=== PATIENT | female | born 1935 | race Caucasian/White ===

== ENCOUNTER 2016-10-27 15:49 | Emergency (ER) | payer MEDICARE, BC ==
[2016-10-27 16:03] VITALS: RESP 18
--- NOTE | 2016-10-27 16:31 | ED ---
General Adult HPI - General Chief complaint: Extremity Injury, Upper Stated complaint: rt shoulder pain Time Seen by Provider: 10/27/16 15:53 Source: patient, EMS, RN notes reviewed Mode of arrival: EMS Limitations: no limitations - History of Present Illness Initial comments: 81-year-old female presents emergency Department chief complaint of right shoulder pain. Patient has been complaining of right shoulder pain for the last week or so. The daughter after discussing the case with the snf follow-up with a specialist she just continued to complain the pains without that they should be seen. The patient denies any falls traumas or injuries. We did contact the snf was consistent with the story. Patient has pain with movement or touch to the shoulder.Patient denies any recent fever, chills, shortness of breath, chest pain, back pain, abdominal pain, nausea vomiting, numbness or tingling, dysuria or hematuria, constipation or diarrhea, headaches or visual changes, or any other current symptoms. - Related Data Home Medications Medication Instructions Recorded Confirmed Acetaminophen Tab [Tylenol Tab] 650 mg PO Q6H PRN 10/27/16 10/27/16 Artificial Tears-Hypromellose 1 drops BOTH EYES TID PRN 10/27/16 10/27/16 [Artificial Tear Drops] Aspirin EC [Ecotrin Low Dose] 81 mg PO DAILY@0930 10/27/16 10/27/16 Atorvastatin [Lipitor] 10 mg PO HS 10/27/16 10/27/16 Carvedilol [Coreg] 12.5 mg PO BID 10/27/16 10/27/16 Levothyroxine Sodium [Synthroid] 100 mcg PO DAILY 10/27/16 10/27/16 Lisinopril [Zestril] 20 mg PO DAILY 10/27/16 10/27/16 Mirtazapine 30 mg PO HS 10/27/16 10/27/16 Oyster Shell Manpreet+D 500/200mg 1 tab PO BID 10/27/16 10/27/16 Ranitidine HCl [Zantac] 150 mg PO BID 10/27/16 10/27/16 Sucralfate [Carafate] 1 gm PO BID 10/27/16 10/27/16 Allergies Allergy/AdvReac Type Severity Reaction Status Date / Time acetaminophen [From Vicodin] Allergy Unknown Verified 10/27/16 16:24 codeine Allergy Unknown Verified 10/27/16 16:24 hydrocodone [From Vicodin] Allergy Unknown Verified 10/27/16 16:24 hydromorphone [From Dilaudid] Allergy Unknown Verified 10/27/16 16:24 morphine Allergy Unknown Verified 10/27/16 16:24 Penicillins Allergy Unknown Verified 10/27/16 16:24 Sulfa (Sulfonamide Allergy Unknown Verified 10/27/16 16:24 Antibiotics) Review of Systems ROS Statement: Those systems with pertinent positive or pertinent negative responses have been documented in the HPI. ROS Other: All systems not noted in ROS Statement are negative. Past Medical History Past Medical History: Unable to Obtain Additional Past Medical History / Comment(s): patient poor historian History of Any Multi-Drug Resistant Organisms: None Reported Past Surgical History: Adenoidectomy, Hysterectomy, Joint Replacement, Tonsillectomy Past Psychological History: No Psychological Hx Reported Smoking Status: Never smoker Past Alcohol Use History: None Reported Past Drug Use History: None Reported General Exam - General Exam Comments Initial Comments: General: The patient is awake and alert, in no distress, and does not appear acutely ill. Neck: The neck is supple, there is no tenderness. Cardiovascular: There is a regular rate and rhythm. No murmur, rub or gallop is appreciated. Respiratory: Lungs are clear to auscultation, respirations are non-labored, breath sounds are equal. No wheezes, stridor, rales, or rhonchi. Musculoskeletal: Sensation intact with 2+ pulses. full Range of motion of the right shoulder. Patient has tenderness with patient of the anterior right shoulder. Full range motion the elbow. Patient is able to touch the opposite over the right hand Neurological: CN II-XII intact, There are no obvious motor or sensory deficits. Coordination appears grossly intact. Speech is normal. Skin: Skin is warm and dry and no rashes or lesions are noted. Psychiatric: Normal mood and affect. Limitations: no limitations Course Vital Signs 10/27/16 15:59 Temperature 98.1 F Pulse Rate 66 Respiratory 18 Rate Blood Pressure 133/60 O2 Sat by Pulse 96 Oximetry Procedures - Orthopedic Splinting/Casting Injury #1 Side: right Upper Extremity Injury Location: shoulder Upper Extremity Immobilizer: sling/shoulder immobilizer Medical Decision Making - Medical Decision Making 81-year-old female presents for right shoulder pain. This time x-rays been reviewed. We discussed care follow-up return parameters discussed continued follow-up with the specialist on Monday. We discussed all the patient's and family's questions. They state Roque management plan. They'll be discharged. Disposition Clinical Impression: Right shoulder pain Disposition: HOME SELF-CARE Condition: Stable Instructions: Shoulder Pain (ED) Additional Instructions: Please use medication as discussed. Please follow up with family doctor if symptoms have not improved over the next two days. Please return to the emergency room if your symptoms increase or worsen or for any other concerns. Referrals: Jefferson Spaluding MD [Medical Doctor] - 1-2 days Time of Disposition: 17:50
--- NOTE | 2016-10-27 16:42 | XR ---
EXAMINATION TYPE: XR shoulder complete RT DATE OF EXAM: 10/27/2016 COMPARISON: NONE HISTORY: 81-year-old female with right shoulder pain TECHNIQUE: 3 views FINDINGS: AC joint appears intact with mild degenerative spurring. There is mild degenerative spurring at the g lenohumeral joint. Extensive bony irregularity along the superior articular margin of the humeral hea d and also at the greater tuberosity with areas of undercutting and possible erosion. There appears t o be significant joint space narrowing at the glenoid humeral joint and anterior positioning of the h umeral head in relation to the glenoid. Possible 6 mm loose body in the subcoracoid recess. No acute fracture seen. IMPRESSION: 1. Extensive bony irregularity and possible shallow erosions along the superior articular surface of the humeral head and at the greater tuberosity. Clinical correlation recommended for possible inflamm atory arthropathy such as RA or infectious arthropathy. 2. There appears to be significant joint space narrowing at the glenohumeral joint with prominent ant erior subluxation. This may reflect instability relating to rotator cuff tear. Recommend an axillary view to exclude anterior dislocation.
--- NOTE | 2016-10-27 17:10 | XR ---
EXAMINATION TYPE: XR shoulder limited RT DATE OF EXAM: 10/27/2016 COMPARISON: NONE HISTORY: 81 year-old female right shoulder pain TECHNIQUE: Single axillary view FINDINGS: Images show anterior subluxation of the glenoid humeral joint with the humeral head articulating with only the anterior half of the glenoid. The anterior glenoid appears deformed and depressed with bone -on-bone articulation. 6 mm loose body in the subcoracoid recess. IMPRESSION: This confirms anterior subluxation with the humeral head articulating with only the anterior half of the glenoid. This anterior glenoid appears deformed and impacted with [id number] articulation. Yovanny elate for any past history of a traumatic shoulder dislocation and a secondary bony Bankart injury. G iven the degree of glenohumeral joint instability, the rotator cuff may be torn.
[2016-10-27] MEDS ORDERED: IBUPROFEN 600 MG TAB PO STA (18:09)
[2016-10-27 18:23] VITALS: BP 160/70; PULSE 65; TEMP 98
== END 2016-10-27 18:22 | disposition home or self-care (01) ==
LOC: EC 15:49
DX: M25.511 Pain in right shoulder (principal); Z88.5 Allergy status to narcotic agent; Z96.60 Presence of unspecified orthopedic joint implant; Z88.0 Allergy status to penicillin; Z88.2 Allergy status to sulfonamides; Z79.01 Long term (current) use of anticoagulants; Z79.82 Long term (current) use of aspirin; Z79.899 Other long term (current) drug therapy
CPT/HCPCS: 99283

== ENCOUNTER 2018-09-10 14:08 | Inpatient (IN) | payer MEDICARE, BC ==
[2018-09-10] MEDS ORDERED: SODIUM CHLORIDE 0.9% 1,000 ML IV STA (14:27)
[2018-09-10] MEDS ORDERED: PANTOPRAZOLE 40 MG/10 ML VIAL IVP STA (14:27)
--- NOTE | 2018-09-10 14:29 | ED ---
General Adult HPI - General Chief complaint: GI Bleed Stated complaint: Rectal Bleeding Time Seen by Provider: 09/10/18 14:14 Source: patient, EMS, RN notes reviewed Mode of arrival: ambulatory Limitations: no limitations - History of Present Illness Initial comments: Patient is a pleasant 83-year-old female presenting to the emergency Department with complaints of lower GI hemorrhage. Onset of symptoms was possibly last night, small amount. Patient states today after eating she had a large bowel movement with blood. Patient denies any abdominal discomfort. No fatigue or weakness. No dyspnea. No history of similar symptoms previously. No nausea or vomiting - Related Data Home Medications Medication Instructions Recorded Confirmed Acetaminophen Tab [Tylenol Tab] 650 mg PO Q6H PRN 10/27/16 09/10/18 Artificial Tears-Hypromellose 1 drops BOTH EYES TID 10/27/16 09/10/18 [Artificial Tear Drops] Aspirin EC [Ecotrin Low Dose] 81 mg PO DAILY@99910/27/16 09/10/18 Atorvastatin [Lipitor] 10 mg PO HS@209910/27/16 09/10/18 Carvedilol [Coreg] 12.5 mg PO BID@999,209910/27/16 09/10/18 Levothyroxine Sodium [Synthroid] 100 mcg PO DAILY@99910/27/16 09/10/18 Lisinopril [Zestril] 20 mg PO DAILY@99910/27/16 09/10/18 Mirtazapine 30 mg PO HS@209910/27/16 09/10/18 Oyster Shell Manpreet+D 500/200mg 1 tab PO BID@1000,16310/27/16 09/10/18 Ranitidine HCl [Zantac] 150 mg PO BID@1000,16310/27/16 09/10/18 Sucralfate [Carafate] 1 gm PO BID@999,162910/27/16 09/10/18 ALPRAZolam [Xanax] 0.25 mg PO DAILY@99909/10/18 09/10/18 Betamethasone Dipropionate 1 applic TOPICAL DAILY@99909/10/18 09/10/18 [Diprolene AF 0.05% Cream] Bumetanide [Bumex] 1 mg PO BID@999,209909/10/18 09/10/18 Naproxen 500 mg PO BID@1000,1630 09/10/18 09/10/18 Polyethylene Glycol 3350 [Miralax] 17 gm PO DAILY PRN 09/10/18 09/10/18 Sennosides/Docusate Sodium 3 tab PO HS PRN 09/10/18 09/10/18 [Senna-S Laxative Tablet] traMADol HCl [Ultram] 50 mg PO BID PRN 09/10/18 09/10/18 Allergies Allergy/AdvReac Type Severity Reaction Status Date / Time acetaminophen [From Vicodin] Allergy Unknown Verified 09/10/18 14:21 codeine Allergy Unknown Verified 09/10/18 14:21 hydrocodone [From Vicodin] Allergy Unknown Verified 09/10/18 14:21 hydromorphone [From Dilaudid] Allergy Unknown Verified 09/10/18 14:21 morphine Allergy Unknown Verified 09/10/18 14:21 Penicillins Allergy Unknown Verified 09/10/18 14:21 Sulfa (Sulfonamide Allergy Unknown Verified 09/10/18 14:21 Antibiotics) Review of Systems ROS Statement: Those systems with pertinent positive or pertinent negative responses have been documented in the HPI. ROS Other: All systems not noted in ROS Statement are negative. Constitutional: Denies: fever Eyes: Denies: eye pain ENT: Denies: ear pain Respiratory: Denies: cough Cardiovascular: Denies: chest pain Endocrine: Denies: fatigue Gastrointestinal: Reports: hematochezia. Denies: abdominal pain, nausea, vomiting Genitourinary: Denies: dysuria Musculoskeletal: Denies: back pain Skin: Denies: rash Neurological: Denies: weakness Past Medical History Past Medical History: Unable to Obtain Additional Past Medical History / Comment(s): patient poor historian History of Any Multi-Drug Resistant Organisms: None Reported Past Surgical History: Adenoidectomy, Hysterectomy, Joint Replacement, Tonsillectomy Past Psychological History: No Psychological Hx Reported Smoking Status: Never smoker Past Alcohol Use History: None Reported Past Drug Use History: None Reported General Exam Limitations: no limitations General appearance: alert, in no apparent distress Head exam: Present: atraumatic Eye exam: Present: normal appearance, PERRL ENT exam: Present: normal oropharynx Neck exam: Present: normal inspection Respiratory exam: Present: normal lung sounds bilaterally Cardiovascular Exam: Present: regular rate, normal rhythm GI/Abdominal exam: Present: soft, normal bowel sounds. Absent: distended, tenderness, guarding, rebound, rigid, pulsatile mass Rectal exam: Present: normal inspection, bloody stool Extremities exam: Present: normal inspection Neurological exam: Present: alert Psychiatric exam: Present: normal affect, normal mood Skin exam: Present: normal color Course Vital Signs 09/10/18 14:13 Temperature 98.0 F Pulse Rate 64 Respiratory 18 Rate Blood Pressure 141/54 O2 Sat by Pulse 100 Oximetry Medical Decision Making - Medical Decision Making Patient reevaluated and updated. Patient resting comfortably in bed. Case was discussed with Dr. Meredith, who will admit covering for hospital call. - Lab Data Result diagrams: 09/10/18 14:37 09/10/18 14:37 Lab Results 09/10/18 09/10/18 09/10/18 Range/Units 14:37 14:37 14:37 WBC 5.6 (3.8-10.6) k/uL RBC 3.12 L (3.80-5.40) m/uL Hgb 9.8 L (11.4-16.0) gm/dL Hct 29.3 L (34.0-46.0) % MCV 94.0 (80.0-100.0) fL MCH 31.4 (25.0-35.0) pg MCHC 33.4 (31.0-37.0) g/dL RDW 14.2 (11.5-15.5) % Plt Count 178 (150-450) k/uL Neutrophils % 63 % Lymphocytes % 19 % Monocytes % 6 % Eosinophils % 7 % Basophils % 1 % Neutrophils # 3.5 (1.3-7.7) k/uL Lymphocytes # 1.1 (1.0-4.8) k/uL Monocytes # 0.4 (0-1.0) k/uL Eosinophils # 0.4 (0-0.7) k/uL Basophils # 0.1 (0-0.2) k/uL PT (9.0-12.0) sec INR (<1.2) APTT (22.0-30.0) sec Sodium 138 (137-145) mmol/L Potassium 4.9 (3.5-5.1) mmol/L Chloride 98 (98-107) mmol/L Carbon Dioxide 32 H (22-30) mmol/L Anion Gap 8 mmol/L BUN 56 H (7-17) mg/dL Creatinine 2.11 H (0.52-1.04) mg/dL Est GFR (CKD-EPI)AfAm 24 (>60 ml/min/1.73 sqM) Est GFR (CKD-EPI)NonAf 21 (>60 ml/min/1.73 sqM) Glucose 107 H (74-99) mg/dL Calcium 9.6 (8.4-10.2) mg/dL Total Bilirubin 0.6 (0.2-1.3) mg/dL AST 19 (14-36) U/L ALT 13 (9-52) U/L Alkaline Phosphatase 68 (38-126) U/L Total Protein 6.3 (6.3-8.2) g/dL Albumin 3.5 (3.5-5.0) g/dL Stool Occult Blood Positive H (Negative) 09/10/18 Range/Units 14:37 WBC (3.8-10.6) k/uL RBC (3.80-5.40) m/uL Hgb (11.4-16.0) gm/dL Hct (34.0-46.0) % MCV (80.0-100.0) fL MCH (25.0-35.0) pg MCHC (31.0-37.0) g/dL RDW (11.5-15.5) % Plt Count (150-450) k/uL Neutrophils % % Lymphocytes % % Monocytes % % Eosinophils % % Basophils % % Neutrophils # (1.3-7.7) k/uL Lymphocytes # (1.0-4.8) k/uL Monocytes # (0-1.0) k/uL Eosinophils # (0-0.7) k/uL Basophils # (0-0.2) k/uL PT 10.3 (9.0-12.0) sec INR 1.0 (<1.2) APTT 28.7 (22.0-30.0) sec Sodium (137-145) mmol/L Potassium (3.5-5.1) mmol/L Chloride (98-107) mmol/L Carbon Dioxide (22-30) mmol/L Anion Gap mmol/L BUN (7-17) mg/dL Creatinine (0.52-1.04) mg/dL Est GFR (CKD-EPI)AfAm (>60 ml/min/1.73 sqM) Est GFR (CKD-EPI)NonAf (>60 ml/min/1.73 sqM) Glucose (74-99) mg/dL Calcium (8.4-10.2) mg/dL Total Bilirubin (0.2-1.3) mg/dL AST (14-36) U/L ALT (9-52) U/L Alkaline Phosphatase (38-126) U/L Total Protein (6.3-8.2) g/dL Albumin (3.5-5.0) g/dL Stool Occult Blood (Negative) Disposition Clinical Impression: Lower gastrointestinal hemorrhage Disposition: ADMITTED IP TO THIS HOSP Is patient prescribed a controlled substance at d/c from ED?: No Referrals: Josue Hager MD [Primary Care Provider] - 1-2 days Decision Time: 15:46
[2018-09-10 14:48] LABS: Basophils # (A) 0.1 k/uL (0-0.2); Basophils % (A) 1 %; Eosinophils # (A) 0.4 k/uL (0-0.7); Eosinophils % (A) 7 %; HCT 29.3 % (34.0-46.0); HGB 9.8 gm/dL (11.4-16.0); Lymphocytes # (A) 1.1 k/uL (1.0-4.8); Lymphocytes % (A) 19 %; MCH 31.4 pg (25.0-35.0); MCHC 33.4 g/dL (31.0-37.0); Mean Platelet Volume 8.5; Monocytes # (A) 0.4 k/uL (0-1.0); Monocytes % (A) 6 %; Neutrophils # (A) 3.5 k/uL (1.3-7.7); Neutrophils % (A) 63 %; Platelet Count 178 k/uL (150-450); RBC 3.12 m/uL (3.80-5.40); RDW 14.2 % (11.5-15.5); WBC 5.6 k/uL (3.8-10.6)
[2018-09-10 14:55] LABS: Albumin 3.5 g/dL (3.5-5.0); Calcium 9.6 mg/dL (8.4-10.2); Potassium 4.9 mmol/L (3.5-5.1); Total Bilirubin 0.6 mg/dL (0.2-1.3); Total Protein 6.3 g/dL (6.3-8.2)
[2018-09-10 14:57] LABS: Prothrombin Time 10.3 sec (9.0-12.0)
[2018-09-10 14:58] LABS: Partial Thromboplastin Time 28.7 sec (22.0-30.0)
[2018-09-10] MEDS ORDERED: NALOXONE 0.4 MG/ML 1 ML VIAL IV PRN (15:47)
[2018-09-10 17:24] LABS: Glucose,Whole Blood 117 mg/dL (75-99)
[2018-09-10 17:30] VITALS: BMI 28.3
[2018-09-10 17:38] LABS: Appearance,Urine Clear (Clear); Bilirubin,Urine Negative (Negative); Blood,Urine Negative (Negative); Color,Urine Light Yellow; Glucose,Urine (UA) Negative (Negative); Ketones,Urine Negative (Negative); Leukocyte Esterase,Urine Negative (Negative); Nitrite,Urine Negative (Negative); PH, Urine 7.5 (5.0-8.0); Protein,Urine Negative (Negative); Specific Gravity,Urine 1.007 (1.001-1.035); Urobilinogen,Urine <2.0 mg/dL (<2.0)
[2018-09-10] MEDS: PANTOPRAZOLE 40 MG/10 ML VIAL IV SCH (21:03)
[2018-09-10 21:43] LABS: HCT 26.9 % (34.0-46.0); HGB 8.9 gm/dL (11.4-16.0); MCH 30.6 pg (25.0-35.0); MCV 92.8 fL (80.0-100.0); Mean Platelet Volume 7.2; Platelet Count 162 k/uL (150-450); RDW 13.2 % (11.5-15.5)
[2018-09-10 22:14] LABS: Eosinophils # (M) 0.25 k/uL (0-0.7); Hypochromasia (M) Present; Monocytes # (M) 0.65 k/uL (0-1.0); Neutrophils % (M) 44 %; Nucleated Red Blood Cells 0 /100 WBC (0-0); Total Cells Counted 100
[2018-09-10 22:15] LABS: Anisocytosis (M) Present
[2018-09-11] MEDS: SODIUM CHLORIDE 0.9% 1,000 ML IV SCH ×3 (02:00→20:03)
[2018-09-11 05:17] LABS: Basophils % (A) 1 %; Eosinophils # (A) 0.2 k/uL (0-0.7); Eosinophils % (A) 4 %; HCT 24.6 % (34.0-46.0); HGB 8.1 gm/dL (11.4-16.0); Lymphocytes # (A) 1.5 k/uL (1.0-4.8); Lymphocytes % (A) 28 %; MCH 31.3 pg (25.0-35.0); MCHC 33.1 g/dL (31.0-37.0); MCV 94.7 fL (80.0-100.0); Mean Platelet Volume 8.5; Monocytes # (A) 0.5 k/uL (0-1.0); Monocytes % (A) 10 %; Neutrophils # (A) 2.9 k/uL (1.3-7.7); Neutrophils % (A) 54 %; Platelet Count 168 k/uL (150-450); RBC 2.59 m/uL (3.80-5.40); RDW 13.7 % (11.5-15.5); WBC 5.3 k/uL (3.8-10.6)
[2018-09-11 05:43] LABS: Calcium 8.7 mg/dL (8.4-10.2); Potassium 4.1 mmol/L (3.5-5.1)
--- NOTE | 2018-09-11 10:30 | PN ---
PROGRESS NOTE PULMONARY/CRITICAL CARE CONSULTATION: DATE OF SERVICE: 09/11/2018 This is an 83-year-old female, very poor historian who comes to the emergency room complaining of lower GI hemorrhage. She apparently had some bright red bleeding per rectum. Apparently, the symptoms started the night before admission. She apparently had a rather large bowel movement after eating, but noted to be bloody. She apparently denied any abdominal discomfort, abdominal pain and she still is denying any of that. She denies any fatigue or weakness. She is not short of breath. Very poor historian. She denies any chest pain or chest discomfort. No fever or chills. It does not appear that she has had this problem before. She was admitted to the ICU with a GI bleed. She is not receiving any supplemental oxygen. She is on saline at 100 mL an hour. Her most recent hemoglobin was 8.1, and she has not received any blood thus far. She is resting comfortably. Again, without any complaints although she is somewhat of a poor historian. OUTPATIENT MEDICATIONS INCLUDE: Tylenol, Artificial Tears, aspirin which has been discontinued, Lipitor, Coreg, Synthroid, Zestril, mirtazapine, oyster shell calcium, ranitidine, Carafate, Xanax, Diprolene cream, Bumex, naproxen, which has been discontinued, MiraLAX, senna laxative, and Ultram, which has been discontinued. ALLERGIES: Include TYLENOL, CODEINE, HYDROCODONE, HYDROMORPHONE,MORPHINE, PENICILLIN and SULFA ANTIBIOTICS. MEDICAL HISTORY: Apparently positive for hyperlipidemia, hypertension, hypothyroidism, gastroesophageal reflux disease, anxiety and chronic pain syndrome. PAST SURGICAL HISTORY: Apparently positive for adenoidectomy, hysterectomy, joint replacement, and tonsillectomy. SOCIAL HISTORY: Apparently negative for tobacco use. FAMILY HISTORY: Noncontributory. Apparently, both mother and father were healthy. This is according to a somewhat-confused patient. OCCUPATION HISTORY: Noncontributory. REVIEW OF SYSTEMS: May or may not be reliable. CONSTITUTIONAL: Mild weakness. NEUROLOGIC: Negative. HEENT: Negative. CARDIOVASCULAR: Negative. PULMONARY: Negative. GI: Lower GI bleed. : Negative. RHEUMATOLOGIC: Negative. IMMUNOLOGIC: Negative. ENDOCRINOLOGIC: Negative. DERMATOLOGIC: Negative. PHYSICAL EXAMINATION: Current vital signs are reviewed. Temperature is 97.8, heart rate 65, respiratory rate 20, blood pressure 122/46 mean 71, room air saturation 97%. Appears in no acute distress. Color is good. No conversational dyspnea. HEENT: Examination is grossly unremarkable. No supplemental oxygen noted. NECK: Supple. Full range of motion. No adenopathy, thyromegaly or neck vein distention. CARDIOVASCULAR: Examination reveals regular rhythm rate. Heart rate is 64 and regular. S1, S2 normal. No S3, S4, murmur. LUNGS: Reveal clear breath sounds equal. No wheezes, rhonchi, or crackles. ABDOMEN: Soft, bowel sounds are noted. No pain on palpation. EXTREMITIES: Intact. No cyanosis, clubbing, or edema. SKIN: Without rash. NEUROLOGIC: Examination is difficult to assess. Her mental status is somewhat poor. She is confused. She does move all 4 extremities. LABS: Reviewed. White count 5.3, hemoglobin 8.1, hematocrit 24.6, platelet count was normal. Sodium, potassium, chloride, CO2 all normal. Anion gap normal. BUN and creatinine were 47 and 1.61. Urine is negative. Stool for occult blood was positive. Liver function tests were otherwise normal. No chest x-rays to report. Medications include Narcan, Protonix and a saline IV. ASSESSMENT: 1. Possible lower gastrointestinal bleed and the patient is a very poor historian. 2. Anemia, secondary to gastrointestinal bleed. 3. History of hyperlipidemia. 4. History of hypertension. 5. History of hypothyroidism. 6. History of gastroesophageal reflux disease. PLAN: The patient will be observed here for the better part of the day. The patient appears to be relatively stable now, although the hemoglobin has been dropping with some gentle hydration. Will have Gastroenterology see the patient. The patient is on appropriate medications. No additional recommendations are made. Patient is a very poor historian. MMODL / IJN: [id number] /
[2018-09-11] MEDS: PANTOPRAZOLE 40 MG/10 ML VIAL IV SCH ×2 (10:44→20:02)
[2018-09-11] MEDS ORDERED: ACETAMINOPHEN TAB 325 MG TAB PO PRN (10:58)
--- NOTE | 2018-09-11 12:03 | P.CONS ---
History of Present Illness - Reason for Consult Consult date: 09/11/18 GI bleed Requesting physician: Manpreet Meredith - Chief Complaint rectal bleeding - History of Present Illness 83-year-old female with dementia resident at local [facility] admitted with reports of rectal bleeding for a few days. History obtained from the medical records and nursing staff. According to the midnight ICU nurse there was reports a few black dark colored bowel movements. Minimal abdominal discomfort. No emesis or gross hematemesis. No history of GI bleed. Unsure if patient has had an EGD or colonoscopy. F medications reviewed Carafate twice daily, Zantac twice daily, Naprosyn twice daily, baby aspirin daily. Admission hemoglobin 9.8 she received a liter bolus of fluid in the ER presently 8.1. White count 5.3. Platelet 168. MCV 94. Review of medical records no previous CBC to compare. FOBT positive. INR 1.0. BUN 56. Creatinine 2.1 today BUN 47. Creatinine 1.6. Review of Systems Obtained from medical record secondary to history of dementia Constitutional: Denies fever, chills, sweats, weight gain, or loss. HEENT: Negative for migraines, blurred vision or loss, earaches, drainage, t innitus, oral mucosal lesions, dysphagia, or odynophagia. CARDIAC: Negative for chest pain, arrhythmias, or palpitation. RESPIRATORY: Negative for shortness of breath, hemoptysis, cough, or sputum pro duction. GI: See HPI for pertinent findings. : Negative for hematuria, urgency, frequency, polyuria, or dysuria. GYNc: Negative vaginal discharge. MUSCULOSKELETAL: Negative for muscle aches, swelling, arthritis, and arthralgias. NEUROLOGIC: Negative for stroke or TIA. ENDOCRINE: Negative for thyroid problems. SKIN: Negative for rash or itching. PSYCHIATRIC: Dementia Past Medical History Past Medical History: Unable to Obtain Additional Past Medical History / Comment(s): Patient has dementia, unable to obtain accurate medial history. History of Any Multi-Drug Resistant Organisms: None Reported Past Surgical History: Adenoidectomy, Hysterectomy, Joint Replacement, Tonsillectomy Past Psychological History: No Psychological Hx Reported Smoking Status: Never smoker Past Alcohol Use History: None Reported Past Drug Use History: None Reported Medications and Allergies Home Medications Medication Instructions Recorded Confirmed Type Acetaminophen Tab [Tylenol Tab] 650 mg PO Q6H PRN 10/27/16 09/10/18 History Artificial Tears-Hypromellose 1 drops BOTH EYES TID 10/27/16 09/10/18 History [Artificial Tear Drops] Aspirin EC [Ecotrin Low Dose] 81 mg PO DAILY@1000 10/27/16 09/10/18 History Atorvastatin [Lipitor] 10 mg PO HS@209910/27/16 09/10/18 History Carvedilol [Coreg] 12.5 mg PO BID@1000,209910/27/16 09/10/18 History Levothyroxine Sodium [Synthroid] 100 mcg PO DAILY@1000 10/27/16 09/10/18 History Lisinopril [Zestril] 20 mg PO DAILY@1000 10/27/16 09/10/18 History Mirtazapine 30 mg PO HS@209910/27/16 09/10/18 History Oyster Shell Manpreet+D 500/200mg 1 tab PO BID@1000,1630 10/27/16 09/10/18 History Ranitidine HCl [Zantac] 150 mg PO BID@1000,1630 10/27/16 09/10/18 History Sucralfate [Carafate] 1 gm PO BID@1000,1630 10/27/16 09/10/18 History ALPRAZolam [Xanax] 0.25 mg PO DAILY@1000 09/10/18 09/10/18 History Betamethasone Dipropionate 1 applic TOPICAL DAILY@1000 09/10/18 09/10/18 History [Diprolene AF 0.05% Cream] Bumetanide [Bumex] 1 mg PO BID@1000,2100 09/10/18 09/10/18 History Naproxen 500 mg PO BID@1000,1630 09/10/18 09/10/18 History Polyethylene Glycol 3350 [Miralax] 17 gm PO DAILY PRN 09/10/18 09/10/18 History Sennosides/Docusate Sodium 3 tab PO HS PRN 09/10/18 09/10/18 History [Senna-S Laxative Tablet] traMADol HCl [Ultram] 50 mg PO BID PRN 09/10/18 09/10/18 History Allergies Allergy/AdvReac Type Severity Reaction Status Date / Time codeine Allergy Unknown Verified 09/10/18 14:21 hydrocodone [From Vicodin] Allergy Unknown Verified 09/10/18 14:21 hydromorphone [From Dilaudid] Allergy Unknown Verified 09/10/18 14:21 morphine Allergy Unknown Verified 09/10/18 14:21 Penicillins Allergy Unknown Verified 09/10/18 14:21 Sulfa (Sulfonamide Allergy Unknown Verified 09/10/18 14:21 Antibiotics) Physical Exam Vitals: Vital Signs Temp Pulse Resp BP Pulse Ox 09/11/18 11:00 59 L 14 136/52 97 09/11/18 10:00 69 18 95/81 93 L 09/11/18 09:00 63 11 L 141/56 92 L 09/11/18 08:00 97.8 F 64 8 L 122/46 97 09/11/18 07:00 68 20 122/46 97 09/11/18 06:00 62 19 129/51 96 09/11/18 05:00 58 L 20 116/39 95 09/11/18 04:00 96.9 F L 58 L 16 87/38 94 L 09/11/18 03:00 65 18 84/57 94 L 09/11/18 02:00 60 14 114/41 95 09/11/18 01:00 63 15 134/49 96 09/11/18 00:00 97.3 F L 63 16 100/81 96 09/10/18 23:00 60 18 139/72 94 L 09/10/18 22:29 58 L 17 139/72 99 09/10/18 22:00 61 12 140/54 91 L 09/10/18 21:00 54 L 12 130/44 100 09/10/18 20:00 96.4 F L 62 17 130/47 98 09/10/18 19:00 66 12 146/61 96 09/10/18 18:00 65 18 138/51 79 L 09/10/18 17:24 97.5 F L 98 09/10/18 16:33 98.2 F 09/10/18 16:18 60 18 158/72 98 09/10/18 15:18 67 18 128/78 98 09/10/18 14:13 98.0 F 64 18 141/54 100 Intake and Output 09/10/18 09/11/18 09/11/18 22:59 06:59 14:59 Intake Total 500 800 500 Output Total 940 825 685 Balance -440 -25 -185 Intake: IV 500 800 500 Sodium Chloride 0.9% 1, 500 800 500 000 ml @ 100 mls/hr IV . Q10H [facility] Rx#:[id number] Output: Urine 940 825 685 Other: Voiding Method Indwelling Catheter Indwelling Catheter Indwelling Catheter Weight 81.4 kg General appearance: The patient is alert dementia, in no acute distress. HET: Head is normocephalic and atraumatic. Pupils are equal and reactive. Oropharynx is clear without lesions. Neck: Supple without lymphadenopathy. Trachea midline. Heart: S1 S2. Regular rate and rhythm. Lungs: No crackles or wheezes are heard. Abdomen: Soft, minimal tenderness to the mid epigastric midabdominal region, nondistended with bowel sounds. No peritoneal signs. No palpable organomegaly or masses. Extremities: Normal skin color and turgor. No cyanosis, rash, ulceration, clubbing, or edema. Radial and pedal pulses are 2/4 bilaterally. Neurological: No focal deficits. Strength and sensation are grossly intact. Results CBC & Chem 7: 09/11/18 04:38 09/11/18 04:38 Labs: Abnormal Lab Results - Last 24 Hours (Table) 09/10/18 09/10/18 09/10/18 Range/Units 14:37 14:37 14:37 RBC 3.12 L (3.80-5.40) m/uL Hgb 9.8 L (11.4-16.0) gm/dL Hct 29.3 L (34.0-46.0) % Carbon Dioxide 32 H (22-30) mmol/L BUN 56 H (7-17) mg/dL Creatinine 2.11 H (0.52-1.04) mg/dL Glucose 107 H (74-99) mg/dL POC Glucose (mg/dL) (75-99) mg/dL Stool Occult Blood Positive H (Negative) 09/10/18 09/10/18 09/11/18 Range/Units 17:04 21:20 04:38 RBC 2.90 L 2.59 L (3.80-5.40) m/uL Hgb 8.9 L 8.1 L (11.4-16.0) gm/dL Hct 26.9 L 24.6 L (34.0-46.0) % Carbon Dioxide (22-30) mmol/L BUN (7-17) mg/dL Creatinine (0.52-1.04) mg/dL Glucose (74-99) mg/dL POC Glucose (mg/dL) 117 H (75-99) mg/dL Stool Occult Blood (Negative) 09/11/18 Range/Units 04:38 RBC (3.80-5.40) m/uL Hgb (11.4-16.0) gm/dL Hct (34.0-46.0) % Carbon Dioxide (22-30) mmol/L BUN 47 H (7-17) mg/dL Creatinine 1.61 H (0.52-1.04) mg/dL Glucose (74-99) mg/dL POC Glucose (mg/dL) (75-99) mg/dL Stool Occult Blood (Negative) Assessment and Plan (1) Acute GI bleeding Narrative/Plan: 83-year-old female underlying dementia chronic NSAID usage admitted with 2 day history of rectal bleeding described by nursing staff melanotic in color with underlying normocytic hypochromic anemia suspect component of acute blood loss with elevated BUN/creatinine raising the possibility of an upper GI bleed possible NSAID-induced peptic ulcer disease possible bleeding AVM other pathology cannot be excluded. Lower GI differentials to consider is acute colonic diverticular bleed, stercoral ulcer, neoplasm, AVM. Current Visit: Yes Status: Acute Code(s): K92.2 - GASTROINTESTINAL HEMORRH AGE, UNSPECIFIED SNOMED Code(s): 35181760 (2) Normocytic anemia Current Visit: Yes Status: Acute Code(s): D64.9 - ANEMIA, UNSPECIFIED SNOMED Code(s): 264024459 (3) Dementia Current Visit: Yes Status: Acute Code(s): F03.90 - UNSPECIFIED DEMENTIA WITHOUT BEHAVIORAL DISTURBANCE SNOMED Code(s): 99728494 Plan: 1. EGD scheduled tomorrow. Colonoscopy not planned at this time. Iron indices. CBC monitoring. Protonix 40 mg twice daily. Hold NSAIDs. Clear liquids. Nothing by mouth after midnight. The dye house hand has discussed the risks, benefits and alternative t herapies for the above-mentioned procedure and for both sedation/analgesia as well as necessary blood product administration, if indicated, as they pertain to this patient. The patient advocate has indicated understanding and acceptance of the risks and procedures discussed. Thank you for this kind referral and the opportunity to participate in the care of your patient. This consultation was discussed with Dr. Pimentel. The impression and plan of care have been directed as dictated.
--- NOTE | 2018-09-11 12:25 | P.HPIM ---
History of Present Illness 80-year-old female was admitted for that started at that his stools and blood in the stools. Patient hemoglobin did drop from around 9.8-8.1. No more GI bleed at this point of time patient was started on Protonix and patient will undergo upper GI endoscopy. Patient does take aspirin at home patient is take naproxen at home as well. Vision his serum creatinine of 2.11 came down to 1.6 and after IV fluids are do not know her baseline creatinine patient denies any history of congestive heart failure . Review of Systems REVIEW OF SYSTEMS: CONSTITUTIONAL: No fever, no malaise, no fatigue. HEENT: No recent visual problems or hearing problems. Denied any sore throat. CARDIOVASCULAR: No chest pain, orthopnea, PND, no palpitations, no syncope. PULMONARY: No shortness of breath, no cough, no hemoptysis. GASTROINTESTINAL: no abdominal pain. NEUROLOGICAL: No headaches, no weakness, no numbness. HEMATOLOGICAL: Denies any bleeding or petechiae. GENITOURINARY: Denies any burning micturition, frequency, or urgency. MUSCULOSKELETAL/RHEUMATOLOGICAL: Denies any joint pain, swelling, or any muscle pain. ENDOCRINE: Denies any polyuria or polydipsia. The rest of the 14-point review of systems is negative. Past Medical History Past Medical History: Unable to Obtain Additional Past Medical History / Comment(s): Patient has dementia, unable to obtain accurate medial history. History of Any Multi-Drug Resistant Organisms: None Reported Past Surgical History: Adenoidectomy, Hysterectomy, Joint Replacement, Tonsillectomy Past Psychological History: No Psychological Hx Reported Smoking Status: Never smoker Past Alcohol Use History: None Reported Past Drug Use History: None Reported Medications and Allergies Home Medications Medication Instructions Recorded Confirmed Type Acetaminophen Tab [Tylenol Tab] 650 mg PO Q6H PRN 10/27/16 09/10/18 History Artificial Tears-Hypromellose 1 drops BOTH EYES TID 10/27/16 09/10/18 History [Artificial Tear Drops] Aspirin EC [Ecotrin Low Dose] 81 mg PO DAILY@1000 10/27/16 09/10/18 History Atorvastatin [Lipitor] 10 mg PO HS@209910/27/16 09/10/18 History Carvedilol [Coreg] 12.5 mg PO BID@999,209910/27/16 09/10/18 History Levothyroxine Sodium [Synthroid] 100 mcg PO DAILY@1000 10/27/16 09/10/18 History Lisinopril [Zestril] 20 mg PO DAILY@1000 10/27/16 09/10/18 History Mirtazapine 30 mg PO HS@2100 10/27/16 09/10/18 History Oyster Shell Manpreet+D 500/200mg 1 tab PO BID@1000,1630 10/27/16 09/10/18 History Ranitidine HCl [Zantac] 150 mg PO BID@1000,1630 10/27/16 09/10/18 History Sucralfate [Carafate] 1 gm PO BID@1000,1630 10/27/16 09/10/18 History ALPRAZolam [Xanax] 0.25 mg PO DAILY@1000 09/10/18 09/10/18 History Betamethasone Dipropionate 1 applic TOPICAL DAILY@1000 09/10/18 09/10/18 History [Diprolene AF 0.05% Cream] Bumetanide [Bumex] 1 mg PO BID@1000,2100 09/10/18 09/10/18 History Naproxen 500 mg PO BID@1000,1630 09/10/18 09/10/18 History Polyethylene Glycol 3350 [Miralax] 17 gm PO DAILY PRN 09/10/18 09/10/18 History Sennosides/Docusate Sodium 3 tab PO HS PRN 09/10/18 09/10/18 History [Senna-S Laxative Tablet] traMADol HCl [Ultram] 50 mg PO BID PRN 09/10/18 09/10/18 History Allergies Allergy/AdvReac Type Severity Reaction Status Date / Time codeine Allergy Unknown Verified 09/10/18 14:21 hydrocodone [From Vicodin] Allergy Unknown Verified 09/10/18 14:21 hydromorphone [From Dilaudid] Allergy Unknown Verified 09/10/18 14:21 morphine Allergy Unknown Verified 09/10/18 14:21 Penicillins Allergy Unknown Verified 09/10/18 14:21 Sulfa (Sulfonamide Allergy Unknown Verified 09/10/18 14:21 Antibiotics) Physical Exam Vitals: Vital Signs Temp Pulse Resp BP Pulse Ox 09/11/18 11:00 59 L 14 136/52 97 09/11/18 10:00 69 18 95/81 93 L 09/11/18 09:00 63 11 L 141/56 92 L 09/11/18 08:00 97.8 F 64 8 L 122/46 97 09/11/18 07:00 68 20 122/46 97 09/11/18 06:00 62 19 129/51 96 09/11/18 05:00 58 L 20 116/39 95 09/11/18 04:00 96.9 F L 58 L 16 87/38 94 L 09/11/18 03:00 65 18 84/57 94 L 09/11/18 02:00 60 14 114/41 95 09/11/18 01:00 63 15 134/49 96 09/11/18 00:00 97.3 F L 63 16 100/81 96 09/10/18 23:00 60 18 139/72 94 L 09/10/18 22:29 58 L 17 139/72 99 09/10/18 22:00 61 12 140/54 91 L 09/10/18 21:00 54 L 12 130/44 100 09/10/18 20:00 96.4 F L 62 17 130/47 98 09/10/18 19:00 66 12 146/61 96 09/10/18 18:00 65 18 138/51 79 L 09/10/18 17:24 97.5 F L 98 09/10/18 16:33 98.2 F 09/10/18 16:18 60 18 158/72 98 09/10/18 15:18 67 18 128/78 98 09/10/18 14:13 98.0 F 64 18 141/54 100 Intake and Output 09/10/18 09/11/18 09/11/18 22:59 06:59 14:59 Intake Total 500 800 500 Output Total 940 825 685 Balance -440 -25 -185 Intake: IV 500 800 500 Sodium Chloride 0.9% 1, 500 800 500 000 ml @ 100 mls/hr IV . Q10H [facility] Rx#:[id number] Output: Urine 940 825 685 Other: Voiding Method Indwelling Catheter Indwelling Catheter Indwelling Catheter Weight 81.4 kg PHYSICAL EXAMINATION: GENERAL: The patient is alert and oriented x3, not in any acute distress. Well developed, well nourished. HEENT: Pupils are round and equally reacting to light. EOMI. No scleral icterus. Does have conjunctival pallor. Normocephalic, atraumatic. No pharyngeal erythema. No thyromegaly. CARDIOVASCULAR: S1 and S2 present. No murmurs, rubs, or gallops. PULMONARY: Chest is clear to auscultation, no wheezing or crackles. ABDOMEN: Soft, nontender, nondistended, normoactive bowel sounds. No palpable organomegaly. MUSCULOSKELETAL: No joint swelling or deformity. EXTREMITIES: No cyanosis, clubbing, or pedal edema. NEUROLOGICAL: Gross neurological examination did not reveal any focal deficits. SKIN: No rashes. Results CBC & Chem 7: 09/11/18 04:38 09/11/18 04:38 Labs: Abnormal Lab Results - Last 24 Hours (Table) 09/10/18 09/10/18 09/10/18 Range/Units 14:37 14:37 14:37 RBC 3.12 L (3.80-5.40) m/uL Hgb 9.8 L (11.4-16.0) gm/dL Hct 29.3 L (34.0-46.0) % Carbon Dioxide 32 H (22-30) mmol/L BUN 56 H (7-17) mg/dL Creatinine 2.11 H (0.52-1.04) mg/dL Glucose 107 H (74-99) mg/dL POC Glucose (mg/dL) (75-99) mg/dL Stool Occult Blood Positive H (Negative) 09/10/18 09/10/18 09/11/18 Range/Units 17:04 21:20 04:38 RBC 2.90 L 2.59 L (3.80-5.40) m/uL Hgb 8.9 L 8.1 L (11.4-16.0) gm/dL Hct 26.9 L 24.6 L (34.0-46.0) % Carbon Dioxide (22-30) mmol/L BUN (7-17) mg/dL Creatinine (0.52-1.04) mg/dL Glucose (74-99) mg/dL POC Glucose (mg/dL) 117 H (75-99) mg/dL Stool Occult Blood (Negative) 09/11/18 Range/Units 04:38 RBC (3.80-5.40) m/uL Hgb (11.4-16.0) gm/dL Hct (34.0-46.0) % Carbon Dioxide (22-30) mmol/L BUN 47 H (7-17) mg/dL Creatinine 1.61 H (0.52-1.04) mg/dL Glucose (74-99) mg/dL POC Glucose (mg/dL) (75-99) mg/dL Stool Occult Blood (Negative) Thrombosis Risk Factor Assmnt - Choose All That Apply Any of the Below Risk Factors Present?: Yes Each Factor Represents 1 point: Obesity (BMI >25) Other Risk Factors: Yes Each Risk Factor Represents 3 Points: Age 75 years or older Other congenital or acquired thrombophilia - If yes, enter type in comment: No Thrombosis Risk Factor Assessment Total Risk Factor Score: 4 Thrombosis Risk Factor Assessment Level: Moderate Risk Assessment and Plan Plan: -Acute GI bleed and acute blood loss anemia from GI bleed possibly upper GI bleed patient is on Protonix which will be continued hold off on the naproxen. continue IV fluids. Patient will undergo upper GI endoscopy - possibly acute renal failure secondary to GI bleed and prerenal azotemia hold off on lisinopril and other nephrotoxic agents along with naproxen naproxen may have contributed to her renal failure as well. Diuretic therapy may have contributed to that as well. Diuretic therapy will be held -Hypothyroidism -Gases visit reflux disease -Hypertension
[2018-09-11] MEDS: SUCRALFATE 1 GM TAB PO SCH (17:29)
[2018-09-11] MEDS: ATORVASTATIN 10 MG TAB PO SCH (20:02)
[2018-09-11] MEDS: MIRTAZAPINE 15 MG TAB PO SCH (20:03)
[2018-09-11] MEDS ORDERED: CARVEDILOL 12.5 MG TAB PO SCH (21:00)
[2018-09-12 05:53] LABS: MCH 31.4 pg (25.0-35.0); MCHC 32.1 g/dL (31.0-37.0); Mean Platelet Volume 8.3; Platelet Count 144 k/uL (150-450); RBC 2.24 m/uL (3.80-5.40); RDW 13.9 % (11.5-15.5); WBC 4.6 k/uL (3.8-10.6)
[2018-09-12 06:06] LABS: Calcium 8.5 mg/dL (8.4-10.2); Potassium 3.8 mmol/L (3.5-5.1)
[2018-09-12] MEDS ORDERED: Potassium Replacement Protocol 1 EACH MISC MISCELLANE PRN (06:17)
[2018-09-12] MEDS: POTASSIUM CHLORIDE 10 MEQ in WATER FOR INJECTION 1 100ML.BAG IVPB SCH ×2 (06:49→09:24)
[2018-09-12] MEDS: PANTOPRAZOLE 40 MG/10 ML VIAL IV SCH ×2 (09:24→20:34)
[2018-09-12] MEDS: SODIUM CHLORIDE 0.9% 1,000 ML IV SCH ×2 (09:24→17:05)
[2018-09-12] MEDS: LEVOTHYROXINE 100 MCG TAB PO SCH (09:25)
[2018-09-12] MEDS: SUCRALFATE 1 GM TAB PO SCH ×2 (09:25→15:49)
--- NOTE | 2018-09-12 09:29 | PN ---
PROGRESS NOTE This is a pulmonary critical care progress note. DATE OF SERVICE: September 12, 2018 This is an 83-year-old female, somewhat of a poor historian who apparently presented to the emergency room with complaints of bright red bleeding per rectum. The patient was admitted to the ICU for a GI bleed. Currently, she is doing relatively well. She is not receiving any supplemental oxygen. She is still confused. Her IV is saline at 100 mL an hour. She apparently is scheduled for an EGD today. She denies any abdominal pain. No abdominal discomfort, nausea, vomiting or diarrhea. No shortness of breath or difficulty breathing. No cough, wheezing, or phlegm production. No chest pain or pressure. PHYSICAL EXAMINATION: VITAL SIGNS: Current vital signs are reviewed. Temperature is 98.2, heart rate 57, respiratory rate 13, blood pressure 116/104, saturations on room air 97%. Appears in no acute distress. HEENT: Examination is grossly unremarkable. Mucous membranes are moist. No oral lesions. No supplemental oxygen. NECK: Supple. Full range of motion. No adenopathy or thyromegaly. Neck veins are flat. CARDIOVASCULAR: Examination reveals regular rhythm and rate. S1, S2 normal. No S3, S4, murmur. Heart rate about mid 60s. LUNGS: Are clear. Breath sounds equal. No wheezes or rhonchi. No crackles. Breath sounds equal bilaterally. ABDOMEN: Soft. Bowel sounds are heard. No masses or tenderness. EXTREMITIES: Are intact. No cyanosis, clubbing, or edema. SKIN: Without rash. NEUROLOGIC: Examination is difficult to assess, but seems to be nonfocal. LABS: Labs are reviewed. White count 4.6, hemoglobin 7, hematocrit 22.0, platelet count 144,000. Sodium 143, potassium 3.8, chloride 113, CO2 is 25, anion gap is 5. BUN and creatinine were 28 and 1.25. Urine is negative. MEDICATIONS: Medications are reviewed. She is on Tylenol, Lipitor, levothyroxine, Remeron, Narcan, Protonix and Carafate. No chest x-ray to report. ASSESSMENT: 1. Lower gastrointestinal bleed with resultant anemia. 2. Anemia secondary to gastrointestinal bleed. 3. History of hyperlipidemia. 4. Hypertension by history. 5. Hypothyroidism. 6. History of gastroesophageal reflux disease. 7. Chronic confusion, rule out dementia. PLAN: Patient is doing well. The patient will apparently have an EGD today. Her hemoglobin did drop. We will continue to follow closely. Prognosis is guarded. She might be able to go to selective overflow today. Additional recommendations and suggestions forthcoming. No oxygen necessary. The patient is stable hemodynamically. Respiratory status is stable as well. MMODL / IJN: [id number] /
[2018-09-12 09:58] LABS: Basophils % (A) 1 %; Eosinophils # (A) 0.3 k/uL (0-0.7); Eosinophils % (A) 6 %; HCT 22.3 % (34.0-46.0); HGB 7.4 gm/dL (11.4-16.0); Lymphocytes # (A) 1.3 k/uL (1.0-4.8); Lymphocytes % (A) 27 %; MCH 31.5 pg (25.0-35.0); MCHC 33.1 g/dL (31.0-37.0); MCV 95.1 fL (80.0-100.0); Mean Platelet Volume 7.7; Monocytes # (A) 0.5 k/uL (0-1.0); Monocytes % (A) 10 %; Neutrophils # (A) 2.7 k/uL (1.3-7.7); Neutrophils % (A) 54 %; Platelet Count 175 k/uL (150-450); RBC 2.34 m/uL (3.80-5.40); RDW 13.8 % (11.5-15.5); WBC 4.9 k/uL (3.8-10.6)
[2018-09-12 11:43] LABS: Iron Saturation 14.34 (12.00-45.00)
[2018-09-12 11:55] LABS: Ferritin 41.9 ng/mL (10.0-291.0)
[2018-09-12] MEDS ORDERED: LIDOCAINE 1% INJ 10MG/ML (20 ML MDV) ONE (12:37)
[2018-09-12] MEDS ORDERED: PROPOFOL 10 MG/ML 20 ML VIAL IV ONE (12:37)
[2018-09-12] MEDS ORDERED: IV FLUID CONTINUATION 1,000 ML IV ONE (12:37)
--- NOTE | 2018-09-12 12:49 | P.PCN ---
Date of Procedure: 09/12/18 Procedure(s) Performed: BRIEF HISTORY: Patient is a 83-year-old, pleasant, white female, admitted to the intensive care unit with acute GI bleed. She had multiple episodes of black tarry stools and dropped hemoglobin from 8.90 7.4 g/dL. She's been taking NSAIDs for arthritis. She is scheduled for an upper endoscopy to evaluate further. PROCEDURE PERFORMED: Esophagogastroduodenoscopy with biopsy. PREOPERATIVE DIAGNOSIS: Acute UGI bleed. IV sedation per anesthesia. PROCEDURE: After informed consent was obtained, the patient was brought into the endoscopy unit. IV sedation was administered by Anesthesia under continuous monitoring. Initially the Olympus GIF-140 video endoscope was inserted into the mouth. Esophagus intubated without any difficulty. It was gradually advanced into the stomach and duodenum and carefully examined. The bulb and the second part of the duodenum appeared normal. The scope at this time was withdrawn to the stomach, adequately insufflated with air, and upon careful examination, mucosa of the antrum, body, cardia and the fundus appeared normal. The scope was then withdrawn into the esophagus. The GE junction was located at 39 cm from the incisors. The esophagus appeared normal. There were no erosions or ulcerations seen and the patient tolerated the procedure well. IMPRESSION: 1. 1 cm antral ulcer with no active bleeding status post biopsy. RECOMMENDATIONS: The findings of this examination were discussed with the patient. She was advised to follow with the biopsy results. Diet will be advanced as tolerated. Continue with Protonix 40 mg daily. She was advised to avoid NSAIDs.
[2018-09-12] MEDS ORDERED: traMADol 50 MG TAB PO PRN (14:10)
[2018-09-12] MEDS: ARTIFICIAL TEARS-HYPROMELLOSE DROPS 15 ML BTL BOTH EYES SCH ×2 (15:49→20:34)
[2018-09-12 16:09] LABS: Basophils % (A) 1 %; Eosinophils # (A) 0.2 k/uL (0-0.7); Eosinophils % (A) 5 %; HCT 23.3 % (34.0-46.0); HGB 7.5 gm/dL (11.4-16.0); Hypochromasia Slight; Lymphocytes # (A) 1.1 k/uL (1.0-4.8); Lymphocytes % (A) 24 %; MCH 31.4 pg (25.0-35.0); Monocytes # (A) 0.4 k/uL (0-1.0); Monocytes % (A) 7 %; Neutrophils # (A) 2.9 k/uL (1.3-7.7); Neutrophils % (A) 61 %; Platelet Count 148 k/uL (150-450); RBC 2.38 m/uL (3.80-5.40); RDW 13.3 % (11.5-15.5); WBC 4.7 k/uL (3.8-10.6)
--- NOTE | 2018-09-12 16:32 | PN ---
PROGRESS NOTE DATE OF SERVICE: 09/12/2018 This 83-year-old woman was admitted with upper gastrointestinal bleed, had EGD done today. EGD by Dr. Pimentel showed 1 cm antral ulcer with no active bleeding ulcers, but however the hemoglobin is dropping. It was 7 and 7.4 today and some active bleeding was noted. The patient being closely monitored. Creatinine is 1.25. Past medical history reviewed. REVIEW OF SYSTEMS: Cardiovascular system: As mentioned earlier. RESPIRATORY: As mentioned earlier. GI as mentioned earlier. no dysuria. CURRENT MEDICATIONS: Reviewed and include: 1. Tylenol 650 q.6 p.r.n. 2. Xanax 0.5 daily. 3. Lipitor 10 mg daily. 4. Synthroid 100 mcg daily. 5. Remeron. 6. Narcan. 7. Protonix. 8. Carafate. 9. Ultram. PHYSICAL EXAM: Patient is alert, oriented x1. Pulse 64. Blood pressure 150/90. Respirations 14, temp is normal. Pulse ox 100 percent on room air. HEENT: Conjunctivae normal. Oral mucosa moist. NECK is no jugular venous distention. No thyroid enlargement or carotid bruit. CARDIOVASCULAR: S1, S2 muffled. RESPIRATIONS: Breath sounds diminished in the bases. A few scattered rhonchi. No crackles. ABDOMEN: Soft, nontender. No mass palpable. LEGS: No edema. No swelling. NERVOUS SYSTEM: Higher functions as mentioned earlier. Moves all 4 limbs. No focal motor or sensory deficits. LYMPHATICS: No lymph nodes palpable in the neck, axillae or groin. JOINTS: No active deforming arthropathy. LAB: WBC 4.9, hemoglobin 7.4, and creatinine is 1.25. ASSESSMENT: 1. Acute upper gastrointestinal bleeding secondary to 1 cm antral ulcer with acute blood loss anemia. 2. History of cerebrovascular accident, transient ischemic attack. 3. Dementia. 4. Hypertension. 5. History of degenerative joint disease. 6. History hypothyroidism. 7. History of eczema. 8. History of adenoidectomy. 9. History of hysterectomy. 10.History of degenerative joint disease. 11.History of bilateral knee replacement, hip replacement. 12.FULL CODE. RECOMMENDATIONS AND DISCUSSION: This 83-year-old woman who presented with multiple complex medical issues, we will monitor the patient closely, continue the current medications, management and symptomatic treatment. Otherwise, continue with IV proton pump inhibitors. Continue with levothyroxine. Continue DVT prophylaxis. Continue with Carafate. Otherwise, repeat labs in the morning. PT/OT evaluation and continue the rest of medications. Avoid NSAIDs at this time. Guarded prognosis. Further recommendations to follow. Continue with H and H q.6h and transfuse hemoglobin less than 7. MMODL / IJN: [id number] /
[2018-09-12] MEDS: ATORVASTATIN 10 MG TAB PO SCH (20:34)
[2018-09-12] MEDS: MIRTAZAPINE 15 MG TAB PO SCH (20:34)
[2018-09-13 05:10] LABS: Basophils % (A) 1 %; Eosinophils # (A) 0.2 k/uL (0-0.7); Eosinophils % (A) 6 %; Hypochromasia Slight; Lymphocytes # (A) 1.2 k/uL (1.0-4.8); Lymphocytes % (A) 30 %; MCH 31.9 pg (25.0-35.0); MCHC 32.2 g/dL (31.0-37.0); MCV 99.1 fL (80.0-100.0); Mean Platelet Volume 8.1; Monocytes # (A) 0.3 k/uL (0-1.0); Monocytes % (A) 7 %; Neutrophils # (A) 2.1 k/uL (1.3-7.7); Neutrophils % (A) 53 %; Platelet Count 143 k/uL (150-450); RBC 2.01 m/uL (3.80-5.40); RDW 13.6 % (11.5-15.5)
[2018-09-13 05:21] LABS: Calcium 8.5 mg/dL (8.4-10.2)
[2018-09-13 05:35] LABS: HCT 19.9 % (34.0-46.0); HGB 6.4 gm/dL (11.4-16.0)
[2018-09-13] MEDS: SODIUM CHLORIDE 0.9% 1,000 ML IV SCH (05:55)
--- NOTE | 2018-09-13 07:15 | PN ---
PROGRESS NOTE PULMONARY/CRITICAL CARE PROGRESS NOTE: DATE OF SERVICE: 09/13/2018 This is an 83-year-old female, poor historian, who presented through the emergency room with bright red bleeding per rectum. The patient was admitted to the ICU for GI bleed. Currently, she is receiving room air. She is on saline at 100 mL an hour. Will discontinue the IV. Today's hemoglobin is 6.4. That is a significant drop from previous hemoglobins. It will be repeated. She did have an EGD yesterday which showed small nonbleeding antral ulcer. Anyway, no additional significant bowel movements that were bloody. The patient appears to be relatively comfortable. Has no other complaints. Again a very poor historian. No fever, chills, cough, phlegm production. No nausea, vomiting or diarrhea. According to the nurse, she has been very stable throughout the night. PHYSICAL EXAMINATION: Current vital signs are reviewed, temperature is 98.2, heart rate is 65, respiratory rate 12, blood pressure 135/58 mean 70, saturations on room air 100%. Appears in no acute distress. HEENT: Examination is grossly unremarkable. Mucous membranes are moist. No oral lesions. NECK: Supple. Full range of motion. No adenopathy. CARDIOVASCULAR: Examination reveals regular rhythm and rate. S1, S2 normal. There is no S3, S4, or murmur. LUNGS: Reveal clear breath sounds. No wheezes or rhonchi. No crackles. ABDOMEN: Soft. Bowel sounds are heard. EXTREMITIES: Intact. No cyanosis, clubbing, or edema. SKIN: Without rash. NEUROLOGIC: Examination is difficult to assess. Her mental status is not great. This is her baseline. Poor historian. She does move all 4 extremities well. LAB DATA: Reviewed. White count 4, hemoglobin 6.4 being repeated, hematocrit 19.9, platelet count 143,000. Sodium, potassium normal. Chloride is 115, CO2 is 20, anion gap is 5. BUN and creatinine were 21 and 1.01. No recent x-rays to report. MEDICATIONS: Reviewed. She is on Tylenol, Xanax, Artificial Tears, Lipitor, Diprolene cream, levothyroxine, Remeron, Narcan, Protonix, potassium replacement, Carafate, and tramadol. Microbiology is pending or negative. ASSESSMENT: 1. Gastrointestinal bleed, secondary to presumed small nonbleeding antral ulcer on EGD. 2. Anemia is secondary to gastrointestinal bleed. 3. History of hyperlipidemia. 4. Hypertension by history. 5. Hypothyroidism. 6. History of gastroesophageal reflux disease. 7. Chronic confusion, rule out dementia. PLAN: The patient's EGD showed a nonbleeding small antral ulcer. Her hemoglobin this morning was 6.4. That seems a bit low given her previous hemoglobin. Will go ahead and repeat the hemoglobin. Also, she may be receiving too much IV fluids and could be causing some hemodilution. The saline IV was discontinued. The patient is an overflow patient. Additional recommendations and suggestions are forthcoming. If hemoglobin is below 7, she will receive 1 unit of blood. MMODL / IJN: [id number] /
[2018-09-13 08:45] LABS: HCT 22.2 % (34.0-46.0); HGB 7.1 gm/dL (11.4-16.0); MCH 31.4 pg (25.0-35.0); Mean Platelet Volume 7.8; Platelet Count 208 k/uL (150-450); RBC 2.27 m/uL (3.80-5.40); RDW 13.9 % (11.5-15.5); WBC 4.8 k/uL (3.8-10.6)
[2018-09-13] MEDS: ALPRAZolam 0.25 MG TAB PO SCH (09:14)
[2018-09-13] MEDS: SUCRALFATE 1 GM TAB PO SCH ×3 (09:18→22:07)
[2018-09-13] MEDS: PANTOPRAZOLE 40 MG/10 ML VIAL IV SCH ×3 (09:18→22:18)
[2018-09-13] MEDS: LEVOTHYROXINE 100 MCG TAB PO SCH (09:18)
[2018-09-13] MEDS: BETAMETHASONE DIPROPIONATE 0.05% CREAM 15 GM TUBE TOPICAL SCH (09:18)
--- NOTE | 2018-09-13 10:11 | P.PN ---
Subjective Progress Note Date: 09/13/18 Principal diagnosis: GI bleed 83-year-old female dementia with acute GI bleed status post EGD findings of nonbleeding antral ulcer. No further bleeding. Tolerating advance diet. Hemoglobin 7.1. Objective - Vital Signs Vital signs: Vital Signs Temp 97.8 F 09/13/18 08:00 Pulse 65 09/13/18 08:00 Resp 13 09/13/18 08:00 BP 119/67 09/13/18 08:00 Pulse Ox 98 09/13/18 08:00 Intake & Output 09/12/18 09/13/18 09/13/18 18:59 06:59 18:59 Intake Total 1360 1440 Output Total 810 975 675 Balance 550 465 -675 Weight 178.4 kg Intake: IV 1000 1200 Potassium Chloride 10 meq 200 In Water For Injection 1 100ml.bag @ 100 mls/hr IVPB Q1H [facility]AS[facility] Rx#: [id number] Sodium Chloride 0.9% 1, 700 1200 000 ml @ 100 mls/hr IV . Q10H [facility]AS[facility]Z Rx#:[id number] Oral 360 240 Output: Urine 810 975 675 Other: Voiding Method Indwelling Catheter Indwelling Catheter Indwelling Catheter # Bowel Movements 1 - Exam General appearance: The patient is alert, in no acute distress. HET: Head is normocephalic and atraumatic. Pupils are equal and reactive. Oropharynx is clear without lesions. Neck: Supple without lymphadenopathy. Trachea midline. Heart: S1 S2. Regular rate and rhythm. Lungs: No crackles or wheezes are heard. Abdomen: Soft, nontender, nondistended with bowel sounds. No peritoneal signs. No palpable organomegaly or masses. Extremities: Normal skin color and turgor. No cyanosis, rash, ulceration, clubbing, or edema. Radial and pedal pulses are 2/4 bilaterally. Neurological: No focal deficits. Strength and sensation are grossly intact. - Labs CBC & Chem 7: 09/13/18 07:29 09/13/18 04:53 Labs: Abnormal Lab Results - Last 24 Hours (Table) 09/12/18 09/12/18 09/13/18 Range/Units 04:58 16:00 04:53 RBC 2.38 L 2.01 L (3.80-5.40) m/uL Hgb 7.5 L 6.4 L* (11.4-16.0) gm/dL Hct 23.3 L 19.9 L* (34.0-46.0) % Plt Count 148 L 143 L (150-450) k/uL Chloride (98-107) mmol/L Carbon Dioxide (22-30) mmol/L BUN (7-17) mg/dL Glucose (74-99) mg/dL Iron 35 L (50-170) ug/dL 09/13/18 09/13/18 Range/Units 04:53 07:29 RBC 2.27 L (3.80-5.40) m/uL Hgb 7.1 L (11.4-16.0) gm/dL Hct 22.2 L (34.0-46.0) % Plt Count (150-450) k/uL Chloride 115 H (98-107) mmol/L Carbon Dioxide 20 L (22-30) mmol/L BUN 21 H (7-17) mg/dL Glucose 103 H (74-99) mg/dL Iron (50-170) ug/dL Assessment and Plan (1) Antral ulcer Current Visit: Yes Status: Acute Code(s): K25.9 - GASTRIC ULCER, UNSP ACUTE OR CHRONIC, W/O HEMOR OR PERF SNOMED Code(s): 3059051972646 (2) Acute GI bleeding Current Visit: Yes Status: Acute Code(s): K92.2 - GASTROINTESTINAL HEMORRHAGE, UNSPECIFIED SNOMED Code(s): 17273738 (3) Normocytic anemia Current Visit: Yes Status: Acute Code(s): D64.9 - ANEMIA, UNSPECIFIED SN OMED Code(s): 715350085 (4) Dementia Current Visit: Yes Status: Acute Code(s): F03.90 - UNSPECIFIED DEMENTIA WITHOUT BEHAVIORAL DISTURBANCE SNOMED Code(s): 41439165 (5) Acute blood loss anemia Current Visit: Yes Status: Acute Code(s): D62 - ACUTE POSTHEMORRHAGIC ANEMIA SNOMED Code(s): 052249351 Plan: 1. Protonix 40 mg daily. No NSAIDs. Discharge per medicine. Return to office 3-4 weeks. We'll follow as needed. Assessment and plan a care discussed with Dr. Pimentel
[2018-09-13] MEDS: ARTIFICIAL TEARS-HYPROMELLOSE DROPS 15 ML BTL BOTH EYES SCH ×3 (11:21→23:31)
--- NOTE | 2018-09-13 18:30 | PN ---
PROGRESS NOTE DATE OF SERVICE: 09/13/2018. This 83-year-old woman who was admitted with acute upper gastrointestinal bleeding had a 1 cm antral ulcer with acute blood loss anemia in the EGD. The patient had history of multiple transfusions. The hemoglobin is fluctuating at this time. Currently the most recent hemoglobin is 7.1 up to 6.4. The patient not receive any transfusion so far. PAST MEDICAL HISTORY: Reviewed. REVIEW OF SYSTEMS: CARDIOVASCULAR SYSTEM: No angina or palpitations. RESPIRATIONS: As mentioned earlier. GI: As mentioned earlier. CURRENT MEDICATIONS: Reviewed and include: 1. Tylenol p.r.n. 2. Xanax 0.5 t.i.d. 3. Artificial tears. 4. Lipitor 10 mg q.h.s. 5. Betamethasone. 6. Synthroid 100 mg p.o. daily. 7. Remeron 30 mg p.o. q.h.s. 8. Potassium replacement. 9. Narcan. 10.Protonix. 11.Carafate. 12.Ultram. PHYSICAL EXAM: Patient is alert, oriented x2. Pulse 59, blood pressure 147/60, respiration 14, temperature normal, pulse ox 98% on room air. HEENT: Conjunctivae pale. NECK: No JVD. CARDIOVASCULAR: S1, S2 muffled. RESPIRATIONS: Breath sounds diminished in the bases. A few scattered rhonchi and crackles. ABDOMEN: Soft, nontender. LEGS: No edema. No swelling. CENTRAL NERVOUS SYSTEM: No focal deficits. LABS: WBC 4.2, hemoglobin 7.1. ASSESSMENT: 1. Acute upper gastrointestinal bleeding secondary to 1 cm antral ulcer with acute blood loss anemia. 2. History of cerebrovascular accident, transient ischemic attack. 3. Dementia. 4. Hypertension. 5. History degenerative joint disease. 6. History of hypothyroidism. 7. History of eczema. 8. History of adenoidectomy. 9. History of hysterectomy. 10.History of change in mental status, acute on chronic metabolic encephalopathy. 11.History of degenerative joint disease. 12.History of bilateral knee replacement. 13.FULL CODE. RECOMMENDATIONS AND DISCUSSION: Recommend to continue current medications, management and symptomatic treatment. Repeat hemoglobin. Hemoglobin less than 7 definitely recommend transfusion 1 unit. Otherwise, repeat labs in the morning. Otherwise, patient is stable. Advance diet and the patient is stable, would recommend discharge in the next 24 to 48 hours. Avoid NSAIDs and antiplatelet agents. MMODL / IJN: [id number] /
[2018-09-13] MEDS: MIRTAZAPINE 15 MG TAB PO SCH (22:06)
[2018-09-13] MEDS: ATORVASTATIN 10 MG TAB PO SCH (22:06)
[2018-09-13] MEDS: PANTOPRAZOLE 40 MG TABLET PO SCH (23:31)
[2018-09-14] MEDS: SUCRALFATE 1 GM TAB PO SCH ×4 (09:04→21:30)
[2018-09-14] MEDS: ARTIFICIAL TEARS-HYPROMELLOSE DROPS 15 ML BTL BOTH EYES SCH ×3 (09:05→20:53)
[2018-09-14] MEDS: ALPRAZolam 0.25 MG TAB PO SCH (09:05)
[2018-09-14] MEDS: PANTOPRAZOLE 40 MG TABLET PO SCH ×2 (09:05→19:09)
[2018-09-14] MEDS: LEVOTHYROXINE 100 MCG TAB PO SCH (09:05)
[2018-09-14 10:03] LABS: Basophils % (A) 1 %; Eosinophils # (A) 0.3 k/uL (0-0.7); Eosinophils % (A) 7 %; HCT 22.6 % (34.0-46.0); HGB 7.3 gm/dL (11.4-16.0); Lymphocytes # (A) 1.2 k/uL (1.0-4.8); Lymphocytes % (A) 24 %; MCH 31.7 pg (25.0-35.0); MCHC 32.4 g/dL (31.0-37.0); MCV 97.9 fL (80.0-100.0); Mean Platelet Volume 10.4; Monocytes # (A) 0.3 k/uL (0-1.0); Monocytes % (A) 6 %; Neutrophils % (A) 61 %; Platelet Count 133 k/uL (150-450); RBC 2.31 m/uL (3.80-5.40); RDW 14.8 % (11.5-15.5)
[2018-09-14 10:08] LABS: Calcium 9.2 mg/dL (8.4-10.2); Potassium 3.9 mmol/L (3.5-5.1)
--- NOTE | 2018-09-14 16:15 | CDI ---
Documentation Clarification Form Date: 09/14/2018 3:58:37 PM From: Antonieta Cooper RN, CCDS Admit Date: 09/10/2018 3:47:00 PM Patient Name: Kassandra Booker Visit Number: [id number] Discharge Date: ATTENTION: The Clinical Documentation Specialists (CDI) and [facility] Coding Staff appreciate your assistance in clarifying documentation. Please respond to the clarification below the line at the bottom and electronically sign. The CDI & [facility] Coding staff will review the response and follow-up if needed. Please note: Queries are made part of the Legal Health Record. If you have any questions, please contact the author of this message via ITS. Dr. Jennifer Pimentel The patient presented with rectal bleeding History/Risk Factors: Dementia, unable to obtain Clinical Indicators: 83-year-old female present with complaints of lower GI hemorrhage. Patient states she had a large bowel movement with blood. Lab findings on admission: HGB 9.8, 8.90, 7.4; Stool occult blood -Positive Radiology findings: Vital Signs: 141/54 64 18 98.0 Treatment: Monitor CBC EGD -1 cm antral ulcer with no active bleeding status post biopsy Protonix 40 mg Daily Avoid NSAIDS In your professional opinion, can you please further clarify Antral ulcer ? Acute Antral ulcer with no active bleeding Chronic Antral ulcer with no active bleeding Acute on Chronic Antral ulcer with no active bleeding Other, please specify Unable to determine Pt presents with black tarry stools. EGD revealed antral ulcer which has caused the bleeding, but there was no active bleeding at the time of EGD.. Acute antral ulcer with no active bleeding MTDD
[2018-09-14] MEDS: BETAMETHASONE DIPROPIONATE 0.05% CREAM 15 GM TUBE TOPICAL SCH (16:25)
--- NOTE | 2018-09-14 19:34 | PN ---
PROGRESS NOTE DATE OF SERVICE: 09/14/2018 This 83-year-old woman was admitted with GI bleed, has 1 cm antral ulcer. The patient continues to have maroon melenic stools at this time. Hemoglobin is 7.1 and 7.3 today. The patient did not get any transfusions so far. The patient's diet has been advanced to a regular diet by Gastroenterology. The patient being closely monitored. Patient is off antiplatelet agents at this time. PAST MEDICAL HISTORY: Reviewed. REVIEW OF SYMPTOMS: CARDIOVASCULAR: No angina or palpitations. RESPIRATORY: As mentioned earlier. GASTROINTESTINAL: As mentioned earlier. : No dysuria. CENTRAL NERVOUS SYSTEM: No numbness, weakness. CURRENT MEDICATIONS: Reviewed and include: 1. Tylenol 650 q.6 p.r.n. 2. Xanax 0.5 t.i.d. 3. Artificial tears. 4. Lipitor 10 mg q.h.s. 5. Synthroid 100 mcg. 6. Remeron 30 mg q.h.s. 7. Narcan. 8. Protonix. 9. Carafate. 10.Ultram. PHYSICAL EXAM: Patient is alert and oriented times three. Pulse 90, blood pressure 157/51, respirations 16, temperature 98 degrees, pulse ox 98% on room air. HEENT: Conjunctivae normal. NECK: No jugular venous distention. CARDIOVASCULAR: S1, S2 muffled. RESPIRATORY: Breath sounds diminished in the bases. A few scattered rhonchi and crackles. ABDOMEN: Soft, nontender. LEGS are no edema. No swelling. CENTRAL NERVOUS SYSTEM: No focal deficits. LABS: WBC 5, hemoglobin 7.3. Sodium 140, potassium 3.9. ASSESSMENT: 1. Acute upper gastrointestinal bleeding secondary to 1 cm antral ulcer with acute blood loss anemia with possibly continuing bleeding. 2. Anemia, acute blood loss anemia. 3. History of cerebrovascular accident, transient ischemic attack. 4. Dementia. 5. Hypertension. 6. History of degenerative joint disease. 7. Hypothyroidism. 8. History of eczema. 9. History of adenoidectomy. 10.History of hysterectomy. 11.History of change in mental status acute on chronic metabolic encephalopathy. 12.History of degenerative joint disease. 13.History of bilateral knee replacements. 14.FULL CODE. RECOMMENDATIONS AND DISCUSSION: Recommend to continue current medications, management and symptomatic treatment. Otherwise, at this time I recommend monitor hemoglobin closely. Avoid antiplatelet agents. Otherwise, continue to monitor. PT/OT evaluation, possible ECF rehab. Further recommendations to follow. MMODL / IJN: [id number] /
[2018-09-14] MEDS: ATORVASTATIN 10 MG TAB PO SCH (20:55)
[2018-09-14] MEDS: MIRTAZAPINE 15 MG TAB PO SCH (20:55)
[2018-09-15 07:11] LABS: Basophils % (A) 1 %; Eosinophils # (A) 0.3 k/uL (0-0.7); Eosinophils % (A) 6 %; HCT 20.7 % (34.0-46.0); Hypochromasia Slight; Lymphocytes % (A) 25 %; MCH 32.4 pg (25.0-35.0); MCHC 32.7 g/dL (31.0-37.0); MCV 99.2 fL (80.0-100.0); Macrocytosis Slight; Mean Platelet Volume 7.1; Monocytes # (A) 0.4 k/uL (0-1.0); Monocytes % (A) 11 %; Neutrophils % (A) 53 %; Platelet Count 179 k/uL (150-450); RBC 2.08 m/uL (3.80-5.40); RDW 14.4 % (11.5-15.5); WBC 3.8 k/uL (3.8-10.6)
[2018-09-15 07:19] LABS: HGB 6.8 gm/dL (11.4-16.0)
[2018-09-15 07:24] LABS: Calcium 8.5 mg/dL (8.4-10.2)
[2018-09-15 07:26] LABS: Potassium 4.1 mmol/L (3.5-5.1)
[2018-09-15] MEDS: PANTOPRAZOLE 40 MG TABLET PO SCH ×2 (08:38→19:06)
[2018-09-15] MEDS: ARTIFICIAL TEARS-HYPROMELLOSE DROPS 15 ML BTL BOTH EYES SCH ×3 (08:38→21:14)
[2018-09-15] MEDS: SUCRALFATE 1 GM TAB PO SCH ×4 (08:38→21:14)
[2018-09-15] MEDS: LEVOTHYROXINE 100 MCG TAB PO SCH (08:38)
[2018-09-15] MEDS: ALPRAZolam 0.25 MG TAB PO SCH (08:38)
[2018-09-15] MEDS: BETAMETHASONE DIPROPIONATE 0.05% CREAM 15 GM TUBE TOPICAL SCH (08:39)
--- NOTE | 2018-09-15 18:26 | PN ---
PROGRESS NOTE DATE OF SERVICE: 09/15/2018 This 83-year-old woman was admitted with upper gastrointestinal bleed and antral ulcers. The patient also continue to have GI bleed. Apparently the patient had an EGD by Dr. Pimentel which showed an antral ulcer. The hemoglobin was dropped to 6.8 today. The patient has gotten 1 unit of transfusion, which is the first transfusion at this time. PAST MEDICAL HISTORY: Reviewed. REVIEW OF SYSTEMS: CARDIOVASCULAR SYSTEM: No angina or palpitations. RESPIRATORY: As mentioned earlier. GI no nausea or vomiting. GENITOURINARY: No dysuria. NERVOUS SYSTEM: No numbness, weakness. CURRENT MEDICATIONS: Reviewed and include: 1. Tylenol 650 q.6 p.r.n. 2. Xanax 0.25 t.i.d. 3. Artificial Tears. 4. Lipitor 10 mg q.h.s. 5. Betamethasone. 6. Synthroid 100 mcg p.o. daily. 7. Remeron 30 mg q.h.s. 8. KCl. 9. Narcan p.r.n. 10.Protonix 40 mg. 11.Carafate. 12.Ultram. PHYSICAL EXAM: Patient is alert, oriented x 2. Pulse is 80. Blood pressure is 128/70, respiration 17, temperature 97.8, pulse ox 98% on room air. HEENT: Conjunctivae normal. Oral mucosa moist. NECK is no jugular venous distention. No carotid bruit. No lymph node enlargement. Cardiovascular: S1, S2 muffled. Respiration: Breath sounds diminished in the bases. A few scattered rhonchi and crackles. ABDOMEN: Soft, nontender. No mass palpable. LEGS: No edema. No swelling. CENTRAL NERVOUS SYSTEM: Diffusely weak. LABS: At this time shows hemoglobin 6.8, sodium 140, potassium 4.1. ASSESSMENT: 1. Acute upper gastrointestinal bleeding secondary to 1 cm antral ulcer with acute blood loss anemia with possible continued bleeding. 2. Anemia acute blood loss anemia. 3. History of cerebrovascular accident/transient ischemic attack. 4. Dementia. 5. Hypertension. 6. History of degenerative joint disease. 7. Hypothyroidism. 8. History of eczema. 9. History of adenoidectomy. 10.History of hysterectomy. 11.History of change in mental status acute on chronic metabolic encephalopathy. 12.History of degenerative joint disease. 13.History of bilateral knee replacements. 14.FULL CODE. RECOMMENDATIONS AND DISCUSSION: Recommend to continue current medications, continue symptomatic treatment. As mentioned earlier will need transfusion. Monitor closely. I would downgrade the diet to full liquids because of the possibility of continued bleeding. Maroon stools were spotted by the staff. I would recommend to continue to monitor. Closely monitor. Otherwise, continue with Protonix and Carafate at this time. Guarded prognosis. Further recommendations to follow. MMODL / IJN: [id number] /
[2018-09-15] MEDS: ATORVASTATIN 10 MG TAB PO SCH (21:14)
[2018-09-15] MEDS: MIRTAZAPINE 15 MG TAB PO SCH (21:14)
[2018-09-16 06:59] LABS: Basophils % (A) 1 %; Eosinophils # (A) 0.3 k/uL (0-0.7); Eosinophils % (A) 7 %; HCT 24.9 % (34.0-46.0); HGB 8.2 gm/dL (11.4-16.0); Lymphocytes # (A) 1.3 k/uL (1.0-4.8); Lymphocytes % (A) 28 %; MCH 31.3 pg (25.0-35.0); MCHC 32.7 g/dL (31.0-37.0); MCV 95.7 fL (80.0-100.0); Mean Platelet Volume 7.7; Monocytes # (A) 0.4 k/uL (0-1.0); Monocytes % (A) 8 %; Neutrophils # (A) 2.4 k/uL (1.3-7.7); Neutrophils % (A) 54 %; Platelet Count 183 k/uL (150-450); RBC 2.61 m/uL (3.80-5.40); RDW 15.7 % (11.5-15.5); WBC 4.5 k/uL (3.8-10.6)
[2018-09-16] MEDS: PANTOPRAZOLE 40 MG TABLET PO SCH ×2 (08:32→17:33)
[2018-09-16] MEDS: SUCRALFATE 1 GM TAB PO SCH ×4 (08:33→20:53)
[2018-09-16] MEDS: ARTIFICIAL TEARS-HYPROMELLOSE DROPS 15 ML BTL BOTH EYES SCH ×4 (08:33→21:00)
[2018-09-16] MEDS: LEVOTHYROXINE 100 MCG TAB PO SCH (08:33)
[2018-09-16] MEDS: ALPRAZolam 0.25 MG TAB PO SCH (08:33)
[2018-09-16] MEDS: BETAMETHASONE DIPROPIONATE 0.05% CREAM 15 GM TUBE TOPICAL SCH (17:34)
--- NOTE | 2018-09-16 20:15 | PN ---
PROGRESS NOTE DATE OF SERVICE: 09/16/2018. This 83-year-old woman was admitted with GI bleed, minimal GI bleed according to the staff today. Hemoglobin was rather stable at 8.2 after transfusion. No chest pain. No palpitations. No fever. EXAM: Alert and oriented x2. Pulse 72, blood pressure 143/83, respirations 16, temp 98.4, pulse ox 97% on room air. HEENT: Conjunctivae normal. Oral mucosa moist. NECK: No jugular venous distention. No lymph node enlargement. CARDIOVASCULAR: S1, S2. RESPIRATORY: Diminished breath sounds at the bases. No rhonchi, no crackles. ABDOMEN: Soft, nontender. LEGS: No swelling. NERVOUS SYSTEM: No focal deficits. LABS: WBC 4.2, hemoglobin is 8.2. ASSESSMENT: 1. Acute upper gastrointestinal bleeding secondary to 1 cm antral ulcer with acute blood loss anemia with possible continued bleeding. 2. Anemia, acute blood loss anemia status post transfusion. 3. History of cerebrovascular accident, transient ischemic attack. 4. Dementia. 5. Metabolic encephalopathy, acute on chronic. 6. Hypertension. 7. History of degenerative joint disease. 8. Hypothyroidism. 9. History of eczema. 10.History of adenoidectomy. 11.History of hysterectomy. 12.History of degenerative joint disease. 13.History of bilateral knee replacement. 14.FULL CODE. RECOMMENDATIONS AND DISCUSSION: Recommend to continue current management, continue symptomatic treatment. Repeat labs, advance the diet to soft bland. Continue to monitor. Guarded prognosis. Further recommendations to follow. MMODL / IJN: [id number] /
[2018-09-16] MEDS: ATORVASTATIN 10 MG TAB PO SCH (20:53)
[2018-09-16] MEDS: MIRTAZAPINE 15 MG TAB PO SCH (20:53)
[2018-09-17] MEDS: ARTIFICIAL TEARS-HYPROMELLOSE DROPS 15 ML BTL BOTH EYES SCH ×2 (08:09→15:47)
[2018-09-17] MEDS: PANTOPRAZOLE 40 MG TABLET PO SCH (08:09)
[2018-09-17] MEDS: SUCRALFATE 1 GM TAB PO SCH ×2 (08:09→12:20)
[2018-09-17 08:25] VITALS: BP 172/72; PULSE 73; RESP 12; TEMP 98
[2018-09-17] MEDS: ALPRAZolam 0.25 MG TAB PO SCH (09:16)
[2018-09-17] MEDS: LEVOTHYROXINE 100 MCG TAB PO SCH (09:16)
[2018-09-17 09:56] LABS: Basophils % (A) 1 %; Eosinophils # (A) 0.3 k/uL (0-0.7); Eosinophils % (A) 6 %; HCT 25.8 % (34.0-46.0); HGB 8.2 gm/dL (11.4-16.0); Lymphocytes % (A) 20 %; MCH 30.9 pg (25.0-35.0); MCHC 31.9 g/dL (31.0-37.0); MCV 96.8 fL (80.0-100.0); Mean Platelet Volume 8.8; Monocytes # (A) 0.3 k/uL (0-1.0); Monocytes % (A) 6 %; Neutrophils # (A) 3.1 k/uL (1.3-7.7); Neutrophils % (A) 64 %; Platelet Count 166 k/uL (150-450); RBC 2.66 m/uL (3.80-5.40); RDW 14.7 % (11.5-15.5); WBC 4.7 k/uL (3.8-10.6)
--- NOTE | 2018-09-17 11:42 | P.DS ---
Providers Date of admission: 09/10/18 15:47 Attending physician: Manpreet Meredith Consults: 09/10/18 16:18 Consult Physician Urgent Consulting Provider: Delfino Avitia Reason/Comments: critical care Do you want consulting provider notified?: Already Contacted Primary care physician: Josue Hager Hospital Course: Final diagnosis Acute upper GI bleeding secondary to 1 cm antral ulcer with acute blood loss anemia with a possible continued bleeding improved Anemia acute blood loss anemia status post transfusion History of CVA TIA Dementia Metabolic encephalopathy acute on chronic Hypertension History of DJD Hypothyroidism History of eczema History of adenoidectomy History hysterectomy History DJD History of bilateral knee replacement Full code Discharge disposition Patient be discharged in a stable condition with guarded prognosis to [facility]. total time taken 35 minutes. A stable but overall prognosis guarded recommended close follow-up with the GI and primary care in the outpatient setting and frequent CBCs. History of present illness This 83-year-old woman with a past medical history multiple medical problems was admitted with acute upper GI bleeding and as well as acute blood loss anemia. EGD showed antral ulcer which is not bleeding. Hemoglobin is stable at 8.2. Patient has no active bleeding. Hemoglobin stable at 8.2. No further bleeding was noted. Patient is able to tolerate a by mouth diet. Patient be discharged in a stable condition with guarded prognosis with the following of his medications. X On exam vitals are stable. Cardio S1 and S2 normal. Respirator system clear to auscultation. Abdomen soft nontender. Nervous system mild diffuse weakness. Discharge medications. Please see medication reconciliation sheet for list of list discharge medications. Plan - Discharge Summary Discharge Rx Participant: No New Discharge Prescriptions: New Pantoprazole [Protonix] 40 mg PO DAILY #30 tablet. Continue Sucralfate [Carafate] 1 gm PO BID@1000,1630 Acetaminophen Tab [Tylenol] 650 mg PO Q6H PRN PRN Reason: Pain Or Fever > 100.5 Ranitidine HCl [Zantac] 150 mg PO BID@1000,1630 Oyster Shell Manpreet+D 500/200mg 1 tab PO BID@1000,1630 Lisinopril [Zestril] 20 mg PO DAILY@1000 Levothyroxine Sodium [Synthroid] 100 mcg PO DAILY@1000 Carvedilol [Coreg] 12.5 mg PO BID@1000,2100 Atorvastatin [Lipitor] 10 mg PO HS@2100 Artificial Tears-Hypromellose [Artificial Tear Drops] 1 drops BOTH EYES TID Sennosides/Docusate Sodium [Senna-S Laxative Tablet] 3 tab PO HS PRN PRN Reason: Constipation Polyethylene Glycol 3350 [Miralax] 17 gm PO DAILY PRN PRN Reason: Constipation Bumetanide [BUMEX] 1 mg PO BID@1000,2099 Betamethasone Dipropionate [Diprolene AF 0.05% Cream] 1 applic TOPICAL DAILY@1000 Mirtazapine 30 mg PO HS@2100 #5 tablet traMADol HCl [Ultram] 50 mg PO BID PRN #9 tab PRN Reason: Pain Changed ALPRAZolam [Xanax] 0.25 mg PO DAILY@1000 PRN #5 tab PRN Reason: Anxiety Discontinued Aspirin EC [Ecotrin Low Dose] 81 mg PO DAILY@1000 Naproxen 500 mg PO BID@1000,1630 Discharge Medication List Acetaminophen Tab [Tylenol] 650 mg PO Q6H PRN 10/27/16 [History] Artificial Tears-Hypromellose [Artificial Tear Drops] 1 drops BOTH EYES TID 10/27/16 [History] Atorvastatin [Lipitor] 10 mg PO HS@209910/27/16 [History] Carvedilol [Coreg] 12.5 mg PO BID@1000,209910/27/16 [History] Levothyroxine Sodium [Synthroid] 100 mcg PO DAILY@1000 10/27/16 [History] Lisinopril [Zestril] 20 mg PO DAILY@1000 10/27/16 [History] Oyster Shell Manpreet+D 500/200mg 1 tab PO BID@1000,162910/27/16 [History] Ranitidine HCl [Zantac] 150 mg PO BID@1000,16310/27/16 [History] Sucralfate [Carafate] 1 gm PO BID@1000,162910/27/16 [History] Betamethasone Dipropionate [Diprolene AF 0.05% Cream] 1 applic TOPICAL DAILY @1000 09/10/18 [History] Bumetanide [BUMEX] 1 mg PO BID@1000,209909/10/18 [History] Polyethylene Glycol 3350 [Miralax] 17 gm PO DAILY PRN 09/10/18 [History] Sennosides/Docusate Sodium [Senna-S Laxative Tablet] 3 tab PO HS PRN 09/10/18 [History] Pantoprazole [Protonix] 40 mg PO DAILY #30 tablet.dr 09/13/18 [Rx] ALPRAZolam [Xanax] 0.25 mg PO DAILY@1000 PRN #5 tab 09/17/18 [Rx] Mirtazapine 30 mg PO HS@2100 #5 tablet 09/17/18 [Rx] traMADol HCl [Ultram] 50 mg PO BID PRN #9 tab 09/17/18 [Rx] Follow up Appointment(s)/Referral(s): Josue Hager MD [Primary Care Provider] - 1-2 days Ambulatory/Diagnostic Orders: Complete Blood Count w/diff [LAB.AMB] Location: None Selected
[2018-09-17] MEDS: BETAMETHASONE DIPROPIONATE 0.05% CREAM 15 GM TUBE TOPICAL SCH (15:51)
== END 2018-09-17 16:03 | DRG 377 ==
LOC: EC 14:08 → 4SSUR 15:47 → 2SICU 16:22 → 4SSUR 09-14 02:51
PROVIDERS: ADMIT Internal Medicine; ATTEND Internal Medicine
PROC: 0DB78ZX Excision of Stomach, Pylorus, Via Natural or Artificial Opening Endoscopic, Diagnostic (ICD-10-PCS; principal; 2018-09-12 12:05)
PROC: 30233N1 Transfusion of Nonautologous Red Blood Cells into Peripheral Vein, Percutaneous Approach (ICD-10-PCS; 2018-09-15)
DX: K25.4 Chronic or unspecified gastric ulcer with hemorrhage (principal); G93.41 Metabolic encephalopathy; D62 Acute posthemorrhagic anemia; N17.9 Acute kidney failure, unspecified; F03.90 Unspecified dementia, unspecified severity, without behavioral disturbance, psychotic disturbance, mood disturbance, and anxiety; I10 Essential (primary) hypertension; E03.9 Hypothyroidism, unspecified; K21.9 Gastro-esophageal reflux disease without esophagitis; E78.5 Hyperlipidemia, unspecified; F41.9 Anxiety disorder, unspecified; G89.4 Chronic pain syndrome; L30.9 Dermatitis, unspecified; M19.90 Unspecified osteoarthritis, unspecified site; Z79.82 Long term (current) use of aspirin; Z79.890 Hormone replacement therapy; Z79.1 Long term (current) use of non-steroidal anti-inflammatories (NSAID); Z79.899 Other long term (current) drug therapy; Z88.5 Allergy status to narcotic agent; Z88.0 Allergy status to penicillin; Z88.2 Allergy status to sulfonamides; Z98.890 Other specified postprocedural states; Z90.710 Acquired absence of both cervix and uterus; Z96.653 Presence of artificial knee joint, bilateral; Z96.641 Presence of right artificial hip joint; Z86.73 Personal history of transient ischemic attack (TIA), and cerebral infarction without residual deficits
CPT/HCPCS: 36415; 43239; 80048; 80053; 81003; 82272; 82728; 83540; 83550; 85025; 85027; 85610; 85730; 86850; 86900; 86901; 86920; 88305; 96361; 96374; 99285